=== PATIENT | female | born 1980 | race Caucasian/White ===

== ENCOUNTER 2017-09-09 09:33 | Inpatient (IN) ==
[2017-09-07 17:04] LABS: Basophils # (Auto) 0 K/mcL (0.0-0.3); Basophils % (Auto) 0.4 % (0.0-2.0); Eosinophils # (Auto) 0.2 K/mcL (0.0-0.7); Eosinophils % (Auto) 2.9 % (0.0-7.0); Granulocytes % (Auto) 68.1 % (38.0-78.0); Lymphocytes # (Auto) 1.9 K/mcL (1.5-4.8); Lymphocytes % (Auto) 23.8 % (15.5-49.0); Mean Cell Volume 96.7 fL (80.0-100.0); Mean Corpuscular HGB Conc 34.3 g/dL (31.0-36.0); Mean Corpuscular Hemoglobin 33.2 pg (26.0-34.0); Monocytes # (Auto) 0.4 K/mcL (0.1-0.9); Monocytes % (Auto) 4.8 % (1.0-12.0); Platelet Count 198 K/mcL (140-440); RBC 4.09 M/mcL (4.00-5.20); Red Cell Distribution Width 13.6 % (11.5-14.5)
[2017-09-07 17:39] LABS: Blood Urea Nitrogen 16 mg/dl (6-20)
[2017-09-08 10:40] LABS: Appearance,Urine CLEAR; Bilirubin,Urine NEG (NEG); Color,Urine YELLOW; Glucose,Urine (UA) NEGATIVE (NEG); Leukocyte Esterase,Urine NEG /uL (NEG); Protein,Urine NEG (NEG); Specific Gravity,Urine 1.019 (1.000-1.035); Urine Blood NEG mg/dL (<0.03); Urobilinogen,Urine NEG (NEG)
[~2017-09-09 09:33] MED LIST: ceFAZolin 1 GM VIAL IV SCH
[2017-09-09] MEDS ORDERED: PROPOFOL 200 MG/20 ML VIAL IV ONE (12:35)
[2017-09-09] MEDS ORDERED: PROMETHAZINE 25 MG/ML VIAL IV ONE (12:35)
[2017-09-09] MEDS ORDERED: MIDAZOLAM 2 MG/2 ML VIAL IV ONE (12:35)
[2017-09-09] MEDS ORDERED: LIDOCAINE HCL/PF 100 MG/5 ML SYRINGE IV ONE (12:35)
[2017-09-09] MEDS ORDERED: DEXAMETHASONE 10 MG/ML VIAL IV ONE (12:35)
[2017-09-09] MEDS ORDERED: ONDANSETRON 4 MG/2 ML VIAL IV ONE (12:35)
[2017-09-09] MEDS ORDERED: GLYCOPYRROLATE 0.2 MG/ML VIAL IV ONE (12:35)
[2017-09-09] MEDS ORDERED: ePHEDrine 50 MG/ML AMPUL IV ONE (12:35)
[2017-09-09] MEDS ORDERED: KETAMINE 100 MG/ML ML IV ONE (12:35)
[2017-09-09] MEDS ORDERED: PHENYLEPHRINE 10 MG/ML VIAL IV ONE (12:35)
[2017-09-09] MEDS ORDERED: TRANEXAMIC ACID 1,000 MG/10 ML VIAL IV ONE ×2 (12:35→14:09)
[2017-09-09] MEDS ORDERED: ROPIVACAINE HCL/PF 20 ML VIAL IJ ONE (12:35)
[2017-09-09] MEDS ORDERED: KETOROLAC 30 MG, ROPIVACAINE HCL/PF 49.5 ML, EPINEPHrine 0.5 MG, 0.9 % SODIUM CHLORIDE ... IJ ONE (13:00)
[2017-09-09] MEDS ORDERED: GENTAMICIN SULFATE 800 MG/20 ML VIAL IR ONE (13:20)
[2017-09-09] MEDS ORDERED: NALOXONE HCL 0.4 MG/ML VIAL IV PRN (14:03)
[2017-09-09] MEDS ORDERED: LACTATED RINGERS 250 ML IV PRN (14:03)
[2017-09-09] MEDS ORDERED: ACETAMINOPHEN 1,000 MG/100 ML BOTTLE IV ONE (14:03)
[2017-09-09] MEDS ORDERED: MEPERIDINE 25 MG/ML SYRINGE IV PRN (14:03)
[2017-09-09] MEDS ORDERED: FLUMAZENIL 0.1 MG/ML ML IV PRN (14:03)
[2017-09-09] MEDS ORDERED: BENZOCAINE/MENTHOL 1 LOZENGE PO PRN ×2 (14:03→14:09)
[2017-09-09] MEDS ORDERED: METHOCARBAMOL 1,000 MG/10 ML VIAL IV PRN (14:03)
[2017-09-09] MEDS ORDERED: IPRATROPIUM/ALBUTEROL 3 ML AMPUL.NEB NEB PRN (14:03)
[2017-09-09] MEDS ORDERED: fentaNYL 100 MCG/2 ML VIAL IV PRN (14:03)
[2017-09-09] MEDS ORDERED: FLEETS ADULT ENEMA PR PRN (14:09)
[2017-09-09] MEDS ORDERED: POLYETHYLENE GLYCOL 3350 17 GM PACKET PO PRN (14:09)
[2017-09-09] MEDS ORDERED: BISACODYL 10 MG SUPP.RECT PR PRN (14:09)
[2017-09-09] MEDS ORDERED: MAGNESIUM HYDROXIDE 30 ML ORAL.SUSP PO PRN (14:09)
[2017-09-09] MEDS ORDERED: LACTATED RINGERS 1,000 ML IV SCH (14:15)
--- NOTE | 2017-09-09 14:18 | Brief Operative Note ---
Date of procedure: 09/09/17 Pre-op diagnosis: secondary arthritis left knee Post-op diagnosis: same Procedure: L TKR Grafts/Implants: Yes (Depuy Attune s+) Anesthesia: GETA Complications: none Surgeon: Zev Burgess Coating Mixer: Rocky Carranza Estimated blood loss (cc): 100 Tourniquet Time (Minutes): 65 Specimens Removed/Pathology: other (left synovial bx and cx) Condition: stable Disposition: PACU
[2017-09-09] MEDS ORDERED: LORazepam 2 MG/ML VIAL IV ONE (14:49)
[2017-09-09] MEDS ORDERED: LORazepam 2 MG/ML VIAL ONE (14:51)
--- NOTE | 2017-09-09 15:25 | XRay Report ---
CLINICAL INFORMATION: Reason for Exam:Post-op total knee COMPARISON: None. FINDINGS: Total knee prostheses is anatomically aligned. There is no seen osseous abnormality. Moderate suprapatellar effusion is noted and periarticular soft tissue swelling IMPRESSION: Negative Interpreted and Authenticated by: Donavon Munoz 09/09/17
--- NOTE | 2017-09-09 15:36 | Operative Note ---
DATE OF OPERATION: 09/09/2017 PREOPERATIVE DIAGNOSIS: Secondary arthritis, left knee. POSTOPERATIVE DIAGNOSIS: Secondary arthritis, left knee. OPERATION: Left total knee replacement. SURGEON: Zev Burgess MD FERRULER: Rocky Carranza PA-C ANESTHESIA: General. TOURNIQUET TIME: 65 minutes. SUMMARY OF PROCEDURE: General anesthesia was attained. The left leg was prepped and draped. A midline incision was made to include her previous anterolateral arthrotomy. This incision was taken down sharply to the quadriceps and medial retinaculum. These were split longitudinally. A sample of the synovial fluid was taken for culture. I also did a synovial biopsy. The anterior menisci were resected. The fat pad was debrided. The patella was mobilized laterally and everted. The intramedullary canal of the femur was identified. It was drilled and reamed. The distal cut was then made at 9.5 mm (the patient did not have a flexion contracture). We then turned our attention to the tibia. The knee was flexed to about 120 degrees. The anterior tibia was exposed. The extramedullary guide system was used. The flexion was set to 4 degrees. The proximal tibial cut was made. We then did flexion, extension gap balancing and no further releases were needed. The femur sized to a 7. The anterior, posterior and bevel cuts were made. The tibia sized to a 6. The notch was prepared by reaming and then broaching the bone. The patella was everted. It measured 22 mm. I resected down to 14 mm thickness. The no-touch test showed a lateral release was not needed. A 35 mm insert was used and trialed. The joint surfaces were thoroughly irrigated with both IrriSept and pulse lavage. After thorough irrigation, the bone was dried and the components were cemented in. Antibiotic cement was used. The components were cemented and including a 7 femur, 6 tibia, 5 mm insert and 35 mm patella. After the cement had hardened excess cement was removed. The tourniquet was let down. All bleeding points were coagulated. The quadriceps and medial retinaculum were closed with buried simple sutures of 0 FiberWire. A second layer of running locking Maxon was used as well. This was done at 30 degrees of flexion. The subcutaneous tissue was closed with buried 2-0 Monocryl. The skin was closed with esteban. A sterile compressive dressing was applied. During the procedure, we used a total of 100 mL of solution that was mixed by the pharmacy with multiple medications for postoperative pain relief. The sponge and needle count was correct. The patient tolerated the procedure well and was taken to the recovery room in stable condition. [email or web address]:iliana Job ID: [id number] Doc ID: [id number] Zev Burgess MD
[2017-09-09] MEDS: oxyCODONE HCL 5 MG TABLET PO PRN ×2 (17:04→20:35)
[2017-09-09] MEDS ORDERED: OLANZapine 5 MG TABLET PO PRN (17:23)
[2017-09-09] MEDS: DEXTROSE 5%-1/2NS W/20MEQ KCL 1,000 ML IV SCH (17:29)
[2017-09-09] MEDS: HYDROmorphone 2 MG/ML VIAL IV PRN ×3 (17:45→23:45)
[2017-09-09] MEDS: SENNOSIDES 1 TABLET PO SCH (20:19)
[2017-09-09] MEDS: GABAPENTIN 300 MG CAPSULE PO SCH (20:19)
[2017-09-09] MEDS: ENOXAPARIN 30 MG/0.3 ML SYRINGE SQ SCH (20:19)
[2017-09-09] MEDS: OLANZapine 5 MG TABLET PO SCH (20:19)
[2017-09-09] MEDS: DOCUSATE SODIUM 100 MG CAPSULE PO SCH (20:19)
[2017-09-09] MEDS: SERTRALINE 100 MG TABLET PO SCH (20:19)
[2017-09-09] MEDS: 0.9 % SODIUM CHLORIDE 10 ML SYRINGE IV SCH (20:23)
[2017-09-09] MEDS: ceFAZolin 1 GM VIAL IV SCH (20:34)
[2017-09-09] MEDS: hydrOXYzine 25 MG TABLET PO SCH (20:35)
[2017-09-09] MEDS: ONDANSETRON 4 MG/2 ML VIAL IV PRN (21:57)
[2017-09-10] MEDS: oxyCODONE HCL 5 MG TABLET PO PRN ×3 (01:42→10:59)
[2017-09-10] MEDS: DEXTROSE 5%-1/2NS W/20MEQ KCL 1,000 ML IV SCH ×2 (03:53→15:10)
[2017-09-10] MEDS: ceFAZolin 1 GM VIAL IV SCH ×3 (03:58→19:20)
[2017-09-10] MEDS: 0.9 % SODIUM CHLORIDE 10 ML SYRINGE IV SCH ×4 (03:58→20:49)
[2017-09-10] MEDS: HYDROmorphone 2 MG/ML VIAL IV PRN ×6 (04:13→18:03)
--- NOTE | 2017-09-10 07:31 | Orthopedic Progress Note ---
Subjective Patient information: Note initiated : 09/10/17 at 7:29 am Service Date, if different from initiated Date: [] Patient: Ruby Jauregui 37 y/o F admitted on 09/09/17 for Left Total Knee Arthroplasty. Chief Complaint: [] Interval history: Patient is POD 1 from a Left TKA. She is doing well and her pain is well controlled. She is participating in PT and doing well. She has had some bleeding from the incision line into her dressings that have required changing. She denies any SOB, headache, chest pain, nausea, vomiting, or any other acute symptoms. Objective Vital signs: Vital Signs Temp Pulse Resp BP BP Pulse Ox 09/10/17 03:55 97.8 F 82 18 108/70 95 09/10/17 00:00 97.9 F 82 16 128/82 96 09/09/17 19:53 97.5 F 90 18 129/82 97 09/09/17 16:45 97 H 120/73 98 09/09/17 16:15 83 103/77 97 09/09/17 16:00 98.7 F 91 H 16 120/73 97 09/09/17 15:59 76 120/83 96 09/09/17 15:44 76 112/77 97 09/09/17 15:29 69 133/84 95 09/09/17 15:14 97.1 F 73 14 119/82 97 09/09/17 15:08 97.4 F 74 12 134/78 99 09/09/17 15:02 97.4 F 75 14 129/68 99 09/09/17 14:57 82 17 135/97 98 09/09/17 14:52 78 13 132/62 100 09/09/17 14:47 79 14 152/89 100 09/09/17 14:42 79 19 132/64 100 09/09/17 14:37 98 H 22 140/89 98 09/09/17 14:32 98 H 18 130/78 100 09/09/17 14:27 101 H 19 132/91 100 09/09/17 14:22 98.6 F 94 H 13 95/60 100 09/09/17 10:08 96.9 F L 68 16 119/77 97 Intake and Output 09/09/17 09/10/17 09/10/17 21:59 05:59 13:59 Intake Total 3452 / 3452 300 / 300 Output Total 2770 / 2770 1200 / 1200 Balance 682 / 682 -900 / -900 Intake: IV 452 / 452 Dextrose 5%-1/2Ns W/20Meq KCl 1 352 / 352 ,000 ml @ 100 mls/hr IV .Q10H JULIANE Rx#:[id number] Oral 500 / 500 300 / 300 IV - Manual Only 2500 / 2500 Output: Urine Catheter Amount 1400 / 1400 Void Amount 1250 / 1250 1200 / 1200 Emesis 20 / 20 Estimated Blood Loss 100 / 100 Other: Percent of Meal Consumed 100% # Voids 1 1 Weight 257 lb 259 lb 3.2 oz Intake & Output: Intake & Output 09/09/17 09/10/17 09/10/17 21:59 05:59 13:59 Intake Total 3452 / 3452 300 / 300 Output Total 2770 / 2770 1200 / 1200 Balance 682 / 682 -900 / -900 Weight 257 lb 259 lb 3.2 oz Intake: IV 452 / 452 Dextrose 5%-1/2Ns W/20Meq KCl 1 352 / 352 ,000 ml @ 100 mls/hr IV .Q10H JULIANE Rx#:[id number] Oral 500 / 500 300 / 300 IV - Manual Only 2500 / 2500 Output: Urine Catheter Amount 1400 / 1400 Void Amount 1250 / 1250 1200 / 1200 Emesis 20 / 20 Estimated Blood Loss 100 / 100 Other: Percent of Meal Consumed 100% # Voids 1 1 Incision: Yes healing, Yes draining (blood), No red, No swollen Incision clean and dry: Yes Dressing: Yes clean, Yes intact Weight bearing status: full Neurological exam IM: Yes neurovascular intact Extremities exam IM: No calf tenderness, Yes normal inspection, Yes Foot pink and warm, Yes neurovascular intact - Labs CBC & BMP: 09/10/17 04:18 09/07/17 15:09 Labs: Orthopedic Labs 09/10/17 04:18 PT 12.6 INR 0.9 09/10/17 09/07/17 04:18 15:09 Hgb 10.9 L 13.6 Hct 32.1 L 39.6 Assessment and Plan (1) Status post total left knee replacement Patient is doing well and her pain is controlled. She will continue PT and plan to discharge tomorrow. Continue current treatment regimen Status: Acute
[2017-09-10] MEDS: SERTRALINE 100 MG TABLET PO SCH ×2 (08:11→20:45)
[2017-09-10] MEDS: DOCUSATE SODIUM 100 MG CAPSULE PO SCH ×2 (08:11→20:45)
[2017-09-10] MEDS: GABAPENTIN 300 MG CAPSULE PO SCH ×3 (08:11→20:45)
[2017-09-10] MEDS: hydrOXYzine 25 MG TABLET PO SCH ×3 (08:11→20:46)
[2017-09-10] MEDS: ENOXAPARIN 30 MG/0.3 ML SYRINGE SQ SCH ×2 (08:11→20:46)
[2017-09-10] MEDS: ONDANSETRON 4 MG/2 ML VIAL IV PRN (08:17)
--- NOTE | 2017-09-10 12:16 | Surgical Pathology Report ---
HISTOLOGY SPECIMEN MICROSCOPIC DIAGNOSIS SYNOVIUM, LEFT KNEE, BIOPSY: -- SYNOVIAL TISSUE WITH PATCHY FIBROSIS, EDEMA, AND MINIMAL CHRONIC INFLAMMATION. -- NO ACUTE INFLAMMATION IDENTIFIED. (SEH:adj) PROCEDURAL IMPRESSION Left knee septic arthritis. GROSS DESCRIPTION Received in formalin labeled "A", is a 1.6 x 1.4 x 0.7 cm pink-yo piece of tissue. Trisected, totally submitted - one cassette. (GAS:sln) Electronically Signed by: Anabelle Prasad D.O.
[2017-09-10] MEDS: HYDROmorphone 2 MG TABLET PO PRN ×2 (15:00→15:44)
[2017-09-10] MEDS: METHOCARBAMOL 750 MG TABLET PO PRN ×2 (15:02→22:07)
[2017-09-10] MEDS ORDERED: HYDROmorphone 2 MG/ML VIAL ONE (18:01)
[2017-09-10] MEDS ORDERED: LORazepam 1 MG TABLET ONE (18:02)
[2017-09-10] MEDS: LORazepam 1 MG TABLET PO PRN (18:03)
[2017-09-10] MEDS: oxyCODONE/APAP 10/325MG TABLET PO PRN ×2 (19:20→23:21)
[2017-09-10] MEDS: SENNOSIDES 1 TABLET PO SCH (20:45)
[2017-09-10] MEDS: OLANZapine 5 MG TABLET PO SCH (20:45)
[2017-09-10] MEDS ORDERED: traZODone HCL 50 MG TABLET PO PRN (21:00)
[2017-09-11] MEDS: HYDROmorphone 2 MG/ML VIAL IV PRN ×6 (00:27→18:31)
[2017-09-11] MEDS: LORazepam 1 MG TABLET PO PRN ×3 (02:28→17:55)
[2017-09-11] MEDS: oxyCODONE/APAP 10/325MG TABLET PO PRN ×6 (03:50→23:30)
[2017-09-11] MEDS: ceFAZolin 1 GM VIAL IV SCH ×3 (03:50→20:33)
[2017-09-11] MEDS: 0.9 % SODIUM CHLORIDE 10 ML SYRINGE IV SCH ×4 (03:50→21:51)
[2017-09-11] MEDS: METHOCARBAMOL 750 MG TABLET PO PRN ×3 (06:54→20:50)
--- NOTE | 2017-09-11 08:32 | Orthopedic Progress Note ---
Subjective Patient information: Note initiated : 09/11/17 at 8:25 am Service Date, if different from initiated Date: [] Patient: Ruby Jauregui 37 y/o F admitted on 09/09/17 for Left Total Knee Arthroplasty. Chief Complaint: [] Principal diagnosis: total knee replacement, previous septic arthritis Objective Vital signs: Vital Signs Temp Pulse Resp BP BP Pulse Ox 09/11/17 06:43 99.3 F H 16 128/82 95 09/11/17 04:00 97.9 F 96 H 18 129/85 97 09/11/17 00:00 98.0 F 97 H 14 133/83 93 09/10/17 19:40 98.3 F 96 H 18 143/86 98 09/10/17 15:36 98.1 F 102 H 20 145/92 97 09/10/17 12:00 98.4 F 89 18 140/86 99 Intake and Output 09/10/17 09/11/17 09/11/17 21:59 05:59 13:59 Intake Total 960 / 960 950 / 950 Output Total 500 / 500 300 / 300 Balance 960 / 960 450 / 450 -300 / -300 Intake: Oral 960 / 960 950 / 950 Output: Void Amount 500 / 500 300 / 300 Other: Meal Lunch Percent of Meal Consumed 100% Stool Size Small Stool Color Brown Stool Consistency Formed Weight 264 lb 14.4 oz Intake & Output: Intake & Output 09/10/17 09/11/17 09/11/17 21:59 05:59 13:59 Intake Total 960 / 960 950 / 950 Output Total 500 / 500 300 / 300 Balance 960 / 960 450 / 450 -300 / -300 Weight 264 lb 14.4 oz Intake: Oral 960 / 960 950 / 950 Output: Void Amount 500 / 500 300 / 300 Other: Meal Lunch Percent of Meal Consumed 100% Stool Size Small Stool Color Brown Stool Consistency Formed Incision: Yes draining Incision clean and dry: Yes (has drained blood) Dressing: Yes clean, Yes dry, Yes intact Weight bearing status: full Neurological exam IM: Yes alert, Yes altered, Yes oriented X3, Yes neurovascular intact Extremities exam IM: Yes normal capillary refill, Yes Foot pink and warm, Yes neurovascular intact - Diagnostic Results Knee x-ray: image reviewed (well positioned TKR left) - Labs CBC & BMP: 09/11/17 04:15 09/07/17 15:09 Labs: Orthopedic Labs 09/11/17 09/10/17 04:15 04:18 PT 11.7 L 12.6 INR 0.9 0.9 09/11/17 09/10/17 04 04:15 04:18 15:09 Hgb 9.1 L 10.9 L 13.6 Hct 27.1 L 32.1 L 39.6 Assessment and Plan (1) Status post total left knee replacement superficial culture from surgery grew light staph, ID pending Deep synovial cx negative WSR today 47, CRP 2.3 Will need antibiotics longer than a few days most likely I have left message for Dr Ceja to consult Status: Acute
[2017-09-11] MEDS: SERTRALINE 100 MG TABLET PO SCH ×2 (08:49→20:34)
[2017-09-11] MEDS: hydrOXYzine 25 MG TABLET PO SCH ×3 (08:50→20:34)
[2017-09-11] MEDS: GABAPENTIN 300 MG CAPSULE PO SCH ×3 (08:50→20:35)
[2017-09-11] MEDS: DOCUSATE SODIUM 100 MG CAPSULE PO SCH ×2 (08:50→20:34)
[2017-09-11] MEDS: ENOXAPARIN 30 MG/0.3 ML SYRINGE SQ SCH ×2 (08:51→20:34)
[2017-09-11] MEDS ORDERED: VANCOMYCIN PER PHARMACY IV SCH (14:14)
[2017-09-11] MEDS ORDERED: 0.9 % SODIUM CHLORIDE 10 ML SYRINGE IV PRN (14:14)
--- NOTE | 2017-09-11 14:24 | Internal Medicine Consult Note ---
Medical - CN: [facility] - Data of Consult Consult date: 09/11/17 Requesting Physician: Brittany Haynes - Consult Narrative Reason for consult: Prosthetic Joint Infection History of present illness: Ms. Jauregui is a 37 year old Female with h/o knee injury last year in November, subsequently underwent surgery for cartilage repair. The patient had an infection of the left knee in February last year. 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 The coag negative staph was resistant to penicillin. The patient notes she was treated for this infection for 9 weeks. She received 2 antibiotics one of which was likely vancomycin she remembers the name. Patient was being followed by [facility] infectious disease [facility]. This time around the patient was admitted to the hospital for elective left knee replacement. During the surgery center will fluid was sent for analysis, this came back positive for gram-positive cocci coag negative. Sensitivities are pending. Medicine was consulted for further management. Besides soreness in the left knee patient has no acute complaints. She was able to provide history. She denies any fever or chills, no sweating or rigors. CC: Brittany Haynes Review of systems: CONSTITUTIONAL: No weight loss, fever, chills, weakness or fatigue. HEENT: Eyes: No visual loss, blurred vision, double vision or yellow sclerae. Ears, Nose, Throat: No hearing loss, sneezing, congestion, runny nose or sore throat. SKIN: No rash or itching. CARDIOVASCULAR: No chest pain, chest pressure or chest discomfort. No palpitations or edema. RESPIRATORY: No shortness of breath, cough or sputum. GASTROINTESTINAL: No nausea, vomiting or diarrhea or constipation. No abdominal pain or blood in stools No Carmen. GENITOURINARY: Denies Burning on urination. Blood in urine, or foul smelling urine NEUROLOGICAL: No headache, dizziness, syncope, paralysis, tremors, numbness or tingling in the extremities. No change in bowel or bladder control. MUSCULOSKELETAL: No muscle, back pain, joint pain or stiffness. (Left knee pain status post surgery) HEMATOLOGIC: No bleeding or bruising. No enlarged nodes PSYCHIATRIC: No depression or anxiety. ENDOCRINOLOGIC: No reports of sweating, cold or heat intolerance. No polyuria or polydipsia. ALLERGIES: No hives, eczema or rhinitis. Skin: No rash, no jaundice, cyanosis or pallor. Medical - CN: PMH Medical history: Left knee septic arthritis Surgical history: Left knee surgery done recently as well as in November last year. Gastric bypass surgery Pertinent family history: Mother has a history of diabetes, mother side has history of cardiac issues. Next line father's side also has history of cardiac issues Social history: Ex-smoker, smoked for 5 years quit 6 weeks ago. Social alcohol denies recreational drug use. Medical - CN: Meds Home Medications Medication Instructions Recorded Confirmed Type Gabapentin 600 mg PO TID 09/07/17 09/09/17 History OLANZapine [Zyprexa] 10 mg PO DAILYP PRN 09/07/17 09/09/17 History OLANZapine [Zyprexa] 10 mg PO HS 09/07/17 09/09/17 History Promethazine [Phenergan] 25 - 50 mg PO Q6HP PRN 09/07/17 09/09/17 History Sertraline [Zoloft] 100 mg PO BID 09/07/17 09/09/17 History hydrOXYzine PAMOATE [Hydroxyzine 50 mg PO TID 09/07/17 09/09/17 History Pamoate] oxyCODONE/APAP [Percocet 5-325 mg] 1 - 2 tab PO Q8HP PRN 09/07/17 09/09/17 History traZODone HCL [Trazodone HCl] 50 mg PO HS 09/10/17 09/10/17 History Allergies Allergy/AdvReac Type Severity Reaction Status Date / Time morphine AdvReac Mild Hallucinati Verified 09/07/17 14:33 ng NSAIDS (Non-Steroidal AdvReac Mild Other Verified 09/07/17 14:46 Anti-Inflamma Medical - CN: Exam - Constitutional Vitals: Temp Pulse Resp BP Pulse Ox 97.2 F 96 H 16 148/88 98 09/11/17 12:00 09/11/17 04:00 09/11/17 12:00 09/11/17 12:00 09/11/17 12:00 Exam: GENERAL: The patient is a well-developed, well-nourished in no apparent distress. Is alert and oriented x3. VITAL SIGNS: Reviewed and as noted elsewhere. HEENT: Head is normocephalic and atraumatic. Extraocular muscles are intact. Pupils are equal, round, and reactive to light. Nares appeared normal. Mouth appears any without lesions. Mucous membranes are moist. NECK: Normal to inspection, Supple, No lymphadenopathy or thyromegaly. LUNGS: Air entry equal on both sides, no wheezing, crackles or rhonchi noted. No accessory muscles of respiration HEART: Regular rate and rhythm normal, S1 and S2 heard, no Gallop, S3 or Rub Noted, No Gross murmur heard. ABDOMEN: Soft, nontender, and nondistended. Positive bowel sounds. No hepatosplenomegaly was noted. EXTREMITIES: No cyanosis, clubbing, rash, lesions or edema. [left knee in dressing] NEUROLOGIC: Cranial nerves II through XII are grossly intact. Motor and Sensory System Grossly Intact PSYCHIATRIC: Normal affect, Normal Mood. Appropriate Behavior. SKIN: No ulceration or wounds noted, No jaundice, No rash noted. Medical - CN: Result - Labs CBC & Chem 7: 09/11/17 04:15 09/07/17 15:09 Labs: Short CBC 09/11/17 Range/Units 04:15 Hgb 9.1 L (12.0-15.0) g/dL Hct 27.1 L (36.0-48.0) % Medical - CN: A/P - Narrative A/P Narrative: A/P Infected prosthetic joint-the patient has a history of septic arthritis, has a newly placed prosthetic joint, fluid analysis before surgery is growing gram- positive cocci which is coag negative. The patient has had infection with a similar bacteria in the past. She has been treated for same. This time around according to the op note the patient's knee was irrigated with irrisept, and antibiotic cement was used. Sensitivity pattern is pending. Patient does not seem to have systemic infection at this point. Will place PICC line, start the patient on vancomycin. I reviewed the microbiology sensitivity patterns in february 2017. The patient will need 6 weeks of IV antibiotics. She will follow-up with infectious disease specialist at [facility]. Patient may also benefit from rifampicin given that she has possible prosthetic joint involvement , I will leave the decision to use rifampicin in conjunction with vancomycin to the infectious disease specialist. Side effects of the medication reviewed with the patient, all questions answered. Patient aware she needs to have weekly labs done while she is on antibiotics. Weekly ESR CBC CMP CBC to be done and followed up by infectious diseaselist. Rest of the management as per orthopedics.
[2017-09-11] MEDS: VANCOMYCIN 1,500 MG in 0.9 % SODIUM CHLORIDE 500 ML IV SCH ×2 (15:18→23:29)
--- NOTE | 2017-09-11 18:42 | XRay Report ---
CLINICAL INFORMATION: Reason for Exam:PICC PLACEMENT COMPARISON: None. FINDINGS: Left PICC line tip overlies the brachycephalic SVC junction. Cardiomediastinal silhouette and pulmonary vessels are normal. The lungs are clear. No effusions. Bones and soft tissues normal IMPRESSION: PICC line overlying the SVC last brachycephalic junction. Nurses were instructed to advance the line 9 cm. No acute cardiac or pulmonary disease Interpreted and Authenticated by: Donavon Munoz 09/11/17
[2017-09-11] MEDS: SENNOSIDES 1 TABLET PO SCH (20:34)
[2017-09-11] MEDS: OLANZapine 5 MG TABLET PO SCH (20:34)
[2017-09-12] MEDS: oxyCODONE/APAP 10/325MG TABLET PO PRN ×4 (03:20→14:53)
[2017-09-12] MEDS: ceFAZolin 1 GM VIAL IV SCH (03:24)
[2017-09-12] MEDS: LORazepam 1 MG TABLET PO PRN ×3 (03:32→13:59)
[2017-09-12] MEDS: 0.9 % SODIUM CHLORIDE 10 ML SYRINGE IV SCH ×3 (03:50→14:00)
[2017-09-12] MEDS: METHOCARBAMOL 750 MG TABLET PO PRN (04:53)
[2017-09-12] MEDS: HYDROmorphone 2 MG/ML VIAL IV PRN ×4 (06:38→14:40)
--- NOTE | 2017-09-12 08:58 | Discharge Summary ---
Providers - Providers Patient information: Note initiated : 09/12/17 at 8:55 am Service Date, if different from initiated Date: [] Patient: Ruby Jauregui 37 y/o F admitted on 09/09/17 for Left Total Knee Arthroplasty. Chief Complaint: [] painful knee, left Date of admission: 09/09/17 Discharge date: 09/12/17 Attending physician: Zev Ceja Hospitalization Hospital course: uncomplicated left tkr, needed for previous septic arthritis. Light growth Staph epi grew out from SQ tissue, none from synovium. Will go home on Vancomycin Discharge diagnosis: knee replacement Reason for admission: tkr Procedures: total knee left Complications: none Exam - Exam Incision healing: Yes Incision draining: No Incision red: No Incision swollen: No Clean and dry: Yes Weight bearing status: full Ortho Discharge - TKA - Patient Instructions Diet: Regular Diet Activity: activity as tolerated Total Knee Protocol: For Total Knee: Start ROM CYNDEE with stationary bike or rocking chair. Work on gaining full extension of knee. Posterior dislocation precautions provided. Hip abductor strengthening and gait training instructions provided. Apply Cryocuff as instructed. Dressing Care: May shower in 3 days Patient Education: Total Knee Replacement (DC) Additional Instructions: Discharge Instructions: Do the exercises at home that physical therapy gave you. Take your prescription, photo ID, insurance cards, and current medication list with you to your first physical therapy appointment. Take your prescription to picking belt operator any medication or equipment (such as walker, crutches, toilet riser or C.P.M.) Wear comfortable clothing for your physical therapy. Weight bearing as tolerated. Please follow up with Mario RUTH in [place] ([phone]) on 09/14 at 3:15. Please arrive 15minutes early for paperwork. If you have the Aquacel Ag dressing, leave in place for 7 days then remove. If dressing becomes soiled (turns black), remove and use gauze 4x4 dressing and silvasorb ointment and change daily. Keep incision clean and dry. To avoid constipation while taking any narcotic pain medication, take an over the counter stool softener/laxative. Use your Cryocuff or ice packs as directed, on for 20 minutes at a time throughout the day. This and elevation will help with pain and swelling. Call your physician for fevers above 100.5 or pain not controlled by medication. Your prescriptions are with your discharge information. Some medications were electronically transmitted to your pharmacy of choice. - Problem Maintenance (1) Status post total left knee replacement Status: Acute Comment: pt can't leave until vancomycin is ready - Follow Up Plan Follow Up Appointments: Zev Burgess MD [Physician] - 09/20/17 Disposition: Home, Self-Care Prognosis: Fair Rehab Potential: Good I certify that the patient requires SNF services: No Overall status at discharge: patient is not back to baseline - Orders For Discharge Prescriptions: Enoxaparin [Lovenox] 40 mg SQ DAILY #14 syringe LORazepam [Ativan] 1 mg PO Q6HP PRN #50 tab PRN Reason: Anxiety/Sedation oxyCODONE/APAP [Percocet 10-325Mg] 1 - 2 tab PO Q4-6HP PRN #60 tab PRN Reason: Pain Level 3-6 Additional Discharge Orders: Physical Therapy at Discharge - TKA Location: Determined By Patient Pending Studies Resuscitation Status Full Code Diet Regular Diet Start Sunshine Sep 09 1508 Docusate Sodium (Colace) 100 mg PO BID [facility] Last Admin: 09/11/17 20:34 Dose: 100 mg Admin: 09/11/17 08:50 Dose: 100 mg Admin: 09/10/17 20:45 Dose: 100 mg Admin: 09/10/17 08:11 Dose: 100 mg Admin: 09/09/17 20:19 Dose: 100 mg Enoxaparin Sodium (Lovenox) 30 mg SQ BID [facility] Last Admin: 09/11/17 20:34 Dose: 30 mg Admin: 09/11/17 08:51 Dose: 30 mg Admin: 09/10/17 20:46 Dose: 30 mg Admin: 09/10/17 08:11 Dose: 30 mg Admin: 09/09/17 20:19 Dose: 30 mg Gabapentin (Neurontin) 600 mg PO TID [facility] Last Admin: 09/11/17 20:35 Dose: 600 mg Admin: 09/11/17 15:18 Dose: 600 mg Admin: 09/11/17 08:50 Dose: 600 mg Admin: 09/10/17 20:45 Dose: 600 mg Admin: 09/10/17 15:06 Dose: 600 mg Admin: 09/10/17 08:11 Dose: 600 mg Admin: 09/09/17 20:19 Dose: 600 mg Heparin Sodium (Porcine) (Heparin Flush) 2 ml IV Q12 [facility] Last Admin: 09/11/17 20:35 Dose: Admin: 09/11/17 18:06 Dose: 2 ml Hydromorphone HCl (Dilaudid) 1 - 4 mg IV Q2HP PRN PRN Reason: PAIN LEVEL > 6 Last Admin: 09/12/17 06:38 Dose: 1 mg Admin: 09/11/17 18:31 Dose: 1 mg Admin: 09/11/17 16:46 Dose: 1 mg Admin: 09/11/17 13:51 Dose: 1 mg Admin: 09/11/17 10:30 Dose: 1 mg Admin: 09/11/17 06:55 Dose: 1 mg Admin: 09/11/17 00:27 Dose: 1 mg Admin: 09/10/17 18:03 Dose: 1 mg Hydroxyzine HCl (Atarax) 50 mg PO TID JUL[facility]E Last Admin: 09/11/17 20:34 Dose: 50 mg Admin: 09/11/17 15:18 Dose: 50 mg Admin: 09/11/17 08:50 Dose: 50 mg Admin: 09/10/17 20:46 Dose: 50 mg Admin: 09/10/17 15:06 Dose: 50 mg Admin: 09/10/17 08:11 Dose: 50 mg Admin: 09/09/17 20:35 Dose: 50 mg Vancomycin HCl 1,500 mg/ (Sodium Chloride) 500 mls @ 333.3 mls/hr IV Q12H JULIANE Last Infusion: 09/12/17 01:00 Dose: 0 mls/hr Admin: 09/11/17 23:29 Dose: 333.3 mls/hr Infusion: 09/11/17 16:49 Dose: 0 mls/hr Admin: 09/11/17 15:18 Dose: 333.3 mls/hr Lorazepam (Ativan) 1 mg PO Q6HP PRN PRN Reason: ANXIETY/SEDATION Last Admin: 09/12/17 08:22 Dose: 1 mg Admin: 09/12/17 03:32 Dose: 1 mg Admin: 09/11/17 17:55 Dose: 1 mg Admin: 09/11/17 12:17 Dose: 1 mg Admin: 09/11/17 02:28 Dose: 1 mg Admin: 09/10/17 18:03 Dose: 1 mg Methocarbamol (Robaxin) 750 mg PO Q6HP PRN PRN Reason: Muscle Spasm Last Admin: 09/12/17 04:53 Dose: 750 mg Admin: 09/11/17 20:50 Dose: 750 mg Admin: 09/11/17 14:33 Dose: 750 mg Admin: 09/11/17 06:54 Dose: 750 mg Admin: 09/10/17 22:07 Dose: 750 mg Admin: 09/10/17 15:02 Dose: 750 mg Olanzapine (Zyprexa) 10 mg PO HS JULIANE Last Admin: 09/11/17 20:34 Dose: 10 mg Admin: 09/10/17 20:45 Dose: 10 mg Admin: 09/09/17 20:19 Dose: 10 mg Ondansetron HCl (Zofran) 4 mg IV Q4HP PRN PRN Reason: Nausea And Vomiting Last Admin: 09/10/17 08:17 Dose: 4 mg Admin: 09/09/17 21:57 Dose: 4 mg Oxycodone/Acetaminophen (Percocet 10-325mg) 1 - 2 tab PO Q4-6HP PRN PRN Reason: PAIN LEVEL 3-6 Last Admin: 09/12/17 07:24 Dose: 2 tab Admin: 09/12/17 03:20 Dose: 2 tab Admin: 09/11/17 23:30 Dose: 2 tab Admin: 09/11/17 19:20 Dose: 2 tab Admin: 09/11/17 15:18 Dose: 2 tab Admin: 09/11/17 11:30 Dose: 2 tab Admin: 09/11/17 07:44 Dose: 2 tab Admin: 09/11/17 03:50 Dose: 2 tab Admin: 09/10/17 23:21 Dose: 2 tab Admin: 09/10/17 19:20 Dose: 2 tab Senna (Senokot) 2 tab PO HS JULIANE Last Admin: 09/11/17 20:34 Dose: 2 tab Admin: 09/10/17 20:45 Dose: 2 tab Admin: 09/09/17 20:19 Dose: 2 tab Sertraline HCl (Zoloft) 100 mg PO BID JUL[facility]E Last Admin: 09/11/17 20:34 Dose: 100 mg Admin: 09/11/17 08:49 Dose: 100 mg Admin: 09/10/17 20:45 Dose: 100 mg Admin: 09/10/17 08:11 Dose: 100 mg Admin: 09/09/17 20:19 Dose: 100 mg Sodium Chloride (Saline Flush) 10 ml IV Q8 [facility] Last Admin: 09/12/17 03:50 Dose: 10 ml Admin: 09/11/17 20:35 Dose: 10 ml Admin: 09/11/17 14:15 Dose: 10 ml Admin: 09/11/17 03:50 Dose: 10 ml Admin: 09/10/17 20:49 Dose: 10 ml Admin: 09/10/17 15:02 Dose: 10 ml Admin: 09/10/17 06:51 Dose: 10 ml Admin: 09/10/17 03:58 Dose: 10 ml Admin: 09/09/17 20:23 Dose: 10 ml Sodium Chloride (Saline Flush) 10 ml IV Q12 [facility] Last Admin: 09/11/17 21:51 Dose: Shift Summary 09/12/17 03:36 Shift Summary by Adair Barber Up ad joon in room w/FWW. Steady on feet. No complaints of numbness or tingling. Minimal drainage this shift. Dressing did not need to be changed. Pain managed w /2 tabs percocet q4h. 1mg Dilaudid given x1 @ beginning of shift. Pt was able to rest for multiple hours through night. Tolerated CPM well during sleep. States the CPM helps w/pain management, as does ambulation. 1mg PO Ativan administered x1. Robaxin admin x1. Cryocuff used w/good pain relief. IV to LFA SL. Double lumen PICC to left arm. K-pad in place. Dressing to be changed today. Receiving IV Ancef and IV Vanco. Mother at bedside throughout night. Pleasant and cooperative w/cares. Will need outpatient antibiotics upon discharge. Initialized on 09/12/17 03:36 - END OF NOTE
[2017-09-12] MEDS: ENOXAPARIN 30 MG/0.3 ML SYRINGE SQ SCH (09:35)
[2017-09-12] MEDS: GABAPENTIN 300 MG CAPSULE PO SCH (09:36)
[2017-09-12] MEDS: hydrOXYzine 25 MG TABLET PO SCH (09:36)
[2017-09-12] MEDS: DOCUSATE SODIUM 100 MG CAPSULE PO SCH (09:36)
[2017-09-12] MEDS: SERTRALINE 100 MG TABLET PO SCH (09:36)
[2017-09-12] MEDS: VANCOMYCIN 1,500 MG in 0.9 % SODIUM CHLORIDE 500 ML IV SCH (10:44)
== END 2017-09-12 15:05 | disposition home or self-care (01) | DRG 470 ==
LOC: MEDSUR 09:33 → SUATTDRO 09:33
PROVIDERS: ADMIT Orthopaedic Surgery Foot and Ankle Surgery; ATTEND Orthopaedic Surgery Foot and Ankle Surgery